=== PATIENT | female | born 1975 | race Caucasian/White ===

== ENCOUNTER → 2017-04-06 | Outpatient (CLI) | payer OTHER | LOC: FIMAGING 13:40 | PROVIDERS: ATTEND Internal Medicine | DX: Z12.39 Encounter for other screening for malignant neoplasm of breast (principal); R59.1 Generalized enlarged lymph nodes | CPT/HCPCS: G0206 ==

== ENCOUNTER → 2017-09-30 | Outpatient (CLI) | payer OTHER | LOC: FIMAGING 12:13 | PROVIDERS: ATTEND Specialist | DX: Z12.31 Encounter for screening mammogram for malignant neoplasm of breast (principal); Z80.3 Family history of malignant neoplasm of breast | CPT/HCPCS: G0202 ==

== ENCOUNTER → 2017-10-10 | Outpatient (CLI) | payer OTHER | LOC: FIMAGING 12:11 | PROVIDERS: ATTEND Specialist | DX: R92.0 Mammographic microcalcification found on diagnostic imaging of breast (principal) | CPT/HCPCS: G0206 ==

== ENCOUNTER → 2018-04-19 | Outpatient (CLI) | payer OTHER | LOC: FIMAGING 13:49 | PROVIDERS: ATTEND Specialist | DX: R92.1 Mammographic calcification found on diagnostic imaging of breast (principal) ==

== ENCOUNTER → 2018-11-09 | Outpatient (CLI) | payer OTHER | LOC: FIMAGING 14:16 | PROVIDERS: ATTEND Specialist | DX: Z12.31 Encounter for screening mammogram for malignant neoplasm of breast (principal) ==

== ENCOUNTER 2019-02-27 10:44 | Day surgery (SDC) | payer OTHER ==
[2019-02-27] MEDS ORDERED: LR 1,000 ML IV ONE (11:05)
--- NOTE | 2019-02-27 11:56 | PDANEPAE ---
ANE Past Medical History - Cardiovascular History Hx Hypertension: No Hx Arrhythmias: No Hx Chest Pain: No Hx Coronary Artery / Peripheral Vascular Disease: No Hx CHF / Valvular Disease: No Hx Palpitations: No - Pulmonary History Hx COPD: No Hx Asthma/Reactive Airway Disease: No Hx Recent Upper Respiratory Infection: No Hx Oxygen in Use at Home: No Hx Sleep Apnea: No Sleep Apnea Screening Result - Last Documented: Negative - Neurologic History Hx Cerebrovascular Accident: No Hx Seizures: No Hx Dementia: No - Endocrine History Hx Diabetes: No - Renal History Hx Renal Disorders: No - Liver History Hx Hepatic Disorders: No - Neurological & Psychiatric Hx Hx Neurological and Psychiatric Disorders: No - Cancer History Hx Cancer: No - Congenital Disorder History Hx Congenital Disorders: No - GI History Hx Gastrointestinal Disorders: No - Other Health History Other Health History: none - Chronic Pain History Chronic Pain: No - Surgical History Prior Surgeries: tummy tuck. hernia repair. "lots of surgeries" ANE Review of Systems Review of Systems: - Exercise capacity METS (RN): 5 METS ANE Patient History - Allergies Allergies/Adverse Reactions: No Known Allergies Allergy (Verified 02/20/19 10:21) - Home Medications Home Medications: Herbals/Supplements -Info Only 02/20/19 [Last Taken 02/20/19] LORazepam [Lorazepam] 0.5 mg PO 02/27/19 [Last Taken 2 Months Ago ~12/28/18] - NPO status NPO Since - Liquids (Date): 02/27/19 NPO Since - Liquids (Time): 01:30 NPO Since - Solids (Date): 02/26/19 NPO Since - Solids (Time): 09:00 - Smoking Hx Smoking Status: Never smoked - Family Anes Hx Family Hx Anesthesia Complications: none ANE Labs/Vital Signs - Vital Signs Blood Pressure: 90/70 Heart Rate: 53 Respiratory Rate: 16 O2 Sat (%): 95 Height: 167.64 cm Weight: 56.699 kg ANE Physical Exam - Airway Neck exam: FROM Mallampati Score: Class 1 Mouth exam: normal dental/mouth exam - Pulmonary Pulmonary: no respiratory distress - Cardiovascular Cardiovascular: regular rate and rhythym - ASA Status ASA Status: I ANE Anesthesia Plan Anesthesia Plan: GA with mask
--- NOTE | 2019-02-27 12:34 | PDGENHP ---
History & Physical Chief Complaint: phx polyps History of Present Illness: phx polyps Pertinent Past, Social, Family History: no tobacco, occ alcohol. fhx breaat cancer colon polyps. no sig pmh Relevant Physical Exam: A+Ox3. CTA. S1S2, RR. +BS soft nt Cardiorespiratory Assessment: class I
[2019-02-27] MEDS ORDERED: PROPOFOL/EMULSION 500 MG/50 ML BOTTLE IV ONE (12:47)
[2019-02-27] MEDS ORDERED: LIDOCAINE 2% 2 ML INJ ONE (13:01)
[2019-02-27] MEDS ORDERED: GLYCOPYRROLATE 0.2 MG/1 ML VIAL ONE (13:01)
[2019-02-27] MEDS ORDERED: NALOXONE HCL 0.4 MG/ML INJ IVP PRN ×2 (13:29→13:31)
[2019-02-27] MEDS ORDERED: LR 500 ML IV PRN (13:31)
[2019-02-27] MEDS ORDERED: ONDANSETRON 4 MG/2 ML VIAL IVP PRN (13:31)
[2019-02-27] MEDS ORDERED: fentaNYL 100 MCG/2 ML INJ IVP PRN (13:31)
--- NOTE | 2019-02-27 13:31 | GIREPORT ---
[facility] Surgical Services - Endoscopy Department Patient Name: Lena Lawson Procedure Date: 02/27/2019 12:42 PM Patient Type: Outpatient Attending MD/ ER Physician: Dewayne Freeman MD Procedure: Colonoscopy Indications: High risk colon cancer surveillance: Personal history of adenoma (10 mm or greater in size) - had residual polyp at previous polypectomy site on colonoscopy in 2018 Providers: Dewayne Freeman MD Medicines: Propofol per Anesthesia = IV general with spont resps Complications: No immediate complications. Estimated blood loss: Minimal. Description of Procedure: After obtaining informed consent, the scope was passed under direct vis ion. Throughout the procedure, the patient's blood pressure, pulse, and oxyg en saturations were monitored continuously. The Colonoscope with irrigatio n channel was introduced through the anus and advanced to the cecum, identified by the appendiceal orifice, ileocecal valve and palpation. T he colonoscopy was performed without difficulty. The patient tolerated the procedure well. The quality of the bowel preparation was good. Findings: The digital rectal exam was normal. A post polypectomy scar was found in the distal ascending colon. The sc ar tissue was healthy in appearance. Biopsies were taken with a cold force ps for histology. Estimated blood loss was minimal. Fulguration to ablate the lesion by argon plasma at 0.5 liters/minute and 20 hudson was successful . Estimated blood loss was minimal. A 2 mm polyp was found in the rectum. The polyp was sessile. The polyp was removed with a cold biopsy forceps. Resection and retrieval were comple te. Estimated blood loss was minimal. The exam was otherwise without abnormality. Estimated Blood Loss: Estimated blood loss was minimal. Post Op Diagnosis: - Post-polypectomy scar in the distal ascending colon. Biopsied. Treate d with argon plasma coagulation (APC). - One 2 mm polyp in the rectum, removed with a cold biopsy forceps. Res ected and retrieved. - The examination was otherwise normal. Recommendation: - Await pathology results. - My office will call with the pathology result with 5-7 days. If you h ave not heard from my office by 14, do not assume the pathology is juaquin l, please call [phone] to get the pathology results. - Repeat colonoscopy in 2 years for surveillance based on pathology res ults. If no polyp tissue at previous polypectomy site, 2 year is correct - Avoid Aspirin and NSAIDs for 7-10 days except as used for cardiac or stroke prevention. - Resume previous diet. - Patient has a contact number available for emergencies. The signs and symptoms of potential delayed complications were discussed with the pat ient. Return to normal activities tomorrow. Written discharge instructions we re provided to the patient. - Continue present medications. - Discharge patient to home (ambulatory). - Return to primary care physician as previously scheduled. - Thank you for allowing me to help in your patient's care. Do not hesi miller to call with any questions. - Refer to Dr. Rogers and [facility] given her po lyp history. - All first degree relative should have screening colonoscopy starting at age 30 - 10 years younger then she was when > 1 cm polyp removed. Attending Participation: I personally performed the entire procedure. Lydia Sauceda M.D Dewayne Freeman MD 02/27/2019 1:31:01 PM This report has been signed electronicallyMatthew MD Lydia Number of Addenda: 0 Note Initiated On: 02/27/2019 12:42 PM Total Procedure Duration Time 0 hours 22 minutes 9 seconds [email or web address]
[2019-02-27 14:19] VITALS: BP 96/54
== END 2019-02-27 14:15 | disposition home or self-care (01) ==
LOC: FSGY 10:44
PROVIDERS: ATTEND Internal Medicine Gastroenterology
PROC: 0DBK8ZX Excision of Ascending Colon, Via Natural or Artificial Opening Endoscopic, Diagnostic (ICD-10-PCS; principal; 2019-02-27 12:00)
PROC: 0DBP8ZX Excision of Rectum, Via Natural or Artificial Opening Endoscopic, Diagnostic (ICD-10-PCS; principal; 2019-02-27 12:00)
DX: Z12.11 Encounter for screening for malignant neoplasm of colon (principal); K62.1 Rectal polyp
CPT/HCPCS: J2704